=== PATIENT | male | born 1960 | race Caucasian/White ===

== ENCOUNTER 2017-05-09 13:21 | Inpatient (IN) | payer OTHER ==
[~2017-05-09] VITALS: Ht 182.9 cm; Wt 114.1 kg
[2017-05-09] MEDS ORDERED: IPRATROPIUM BROMIDE 0.02% 2.5 ML NEB NEB STA (13:23)
[2017-05-09] MEDS ORDERED: ALBUTEROL SULF 0.083% NEB SOLN 3 ML NEB NEB STA (13:23)
[2017-05-09 14:19] LABS: BASOPHILS # (AUTO) 0.1 (0.0-0.1); BASOPHILS % 0.7 % (0.0-1.0); EOSINOPHILS # (AUTO) 0.3 (0.0-0.4); EOSINOPHILS % 4.6 % (0.0-6.0); HEMATOCRIT 35.3 % (38.2-49.6); HEMOGLOBIN 11.3 g/dL (14.0-18.0); LYMPHOCYTES # (AUTO) 1.1 (1.0-3.2); LYMPHOCYTES % 15.2 % (18.0-39.1); MEAN CORPUSCULAR HEMOGLOBIN 28.5 pg (28-32); MEAN CORPUSCULAR VOLUME 88.9 fL (81-99); MONOCYTES # (AUTO) 0.6 (0.2-0.8); MONOCYTES % 8.5 % (4.4-11.3); NEUTROPHILS # (AUTO) 4.9 (2.1-6.9); NEUTROPHILS % 70.6 % (38.7-80.0); PLATELET COUNT 354 x10e3/uL (140-360); RED BLOOD COUNT 3.97 x10e6/uL (4.3-5.7); RED CELL DISTRIBUTION WIDTH 13.2 % (11.7-14.4)
[2017-05-09] MEDS ORDERED: PHENYLEPHRINE HCL 1% 10 MG/ML VIAL ONE (14:24)
[2017-05-09 14:34] LABS: INR 1.01; PROTHROMBIN TIME 13.8 seconds (11.9-14.5)
[2017-05-09 14:35] LABS: PARTIAL THROMBOPLASTIN TIME 32.4 seconds (23.8-35.5)
[2017-05-09 14:44] LABS: ALANINE AMINOTRANSFERASE 16 IU/L (0-55); ALBUMIN 3.4 g/dL (3.5-5.0); ALBUMIN/GLOBULIN RATIO 0.9 (0.8-2.0); ALKALINE PHOSPHATASE 159 IU/L (40-150); BLOOD UREA NITROGEN 11 mg/dL (7-26); BUN/CREATININE RATIO 12 (6-25); CALCIUM 9.1 mg/dL (8.4-10.2); CARBON DIOXIDE 23 mmol/L (22-29); CHLORIDE 107 mmol/L (98-107); CREATINE KINASE 32 IU/L (30-200); CREATININE, SERUM 0.92 mg/dL (0.72-1.25); EST GLOMERULAR FILTRATION RATE > 60 ML/MIN (60-); GLUCOSE 109 mg/dL (74-118); LIPASE 27 U/L (8-78); SODIUM 140 mmol/L (136-145)
[2017-05-09 14:51] LABS: TROPONIN I 0.007 ng/mL (0-0.300)
[2017-05-09] MEDS ORDERED: ALLOPURINOL100 MG PO (14:56)
[2017-05-09] MEDS ORDERED: IOPAMIDOL 370 MG/ML 200 ML INFUS..BTL INJ ONE (15:04)
[2017-05-09] MEDS ORDERED: SODIUM CHLORIDE 0.9% 50ML 50 ML ONE (15:04)
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
[2017-05-09 16:07] LABS: CLARITY,URINE CLEAR (CLEAR); COLOR,URINE YELLOW (YELLOW); KETONES,URINE NEGATIVE (NEGATIVE); LEUKOCYTE ESTERASE ,URINE NEGATIVE (NEGATIVE); NITRITE,URINE NEGATIVE (NEGATIVE); URINE UROBILINOGEN 0.2 mg/dL (0.2 - 1)
[2017-05-09 16:11] LABS: BILIRUBIN,URINE 1+ (NEGATIVE); PROTEIN,URINE DIPSTICK 1+ (NEGATIVE)
[2017-05-09] MEDS ORDERED: MORPHINE SULFATE 2 MG/ML SYR IV PRN (16:15)
[2017-05-09 16:54] LABS: BACTERIA,URINE FEW /HPF; RBC,URINE 0-5 /HPF (0-5)
[2017-05-09 16:55] LABS: EPITHELIAL CELLS,URINE FEW /LPF; MUCUS,URINE MANY (RARE)
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
[2017-05-09] MEDS: CEFTRIAXONE SOD 1 GM VIAL IV SCH (18:24)
[2017-05-09] MEDS: ALBUTEROL/IPRATROPIUM 3 ML NEB NEB SCH (19:00)
[2017-05-09 21:45] VITALS: BP 132/77
[2017-05-09] MEDS ORDERED: DEXTROSE 5%/LACTATED RINGERS 1,000 ML IV ONE (21:45)
[2017-05-09 22:00] VITALS: BP 132/77
[2017-05-10] MEDS: ALBUTEROL/IPRATROPIUM 3 ML NEB NEB SCH ×6 (00:40→20:40)
[2017-05-10 02:15] VITALS: BP 130/75
[2017-05-10] MEDS: CEFTRIAXONE SOD 1 GM VIAL IV SCH (05:28)
[2017-05-10 05:55] VITALS: BP 129/78
[2017-05-10 08:07] VITALS: BP 139/77
--- NOTE | 2017-05-10 08:07 | Progress Note ---
DATE: May 10, 2017 TIME: 7:21 a.m. OVERNIGHT: No events. Patient is comfortable. REVIEW OF SYSTEMS: Denies any dizziness or chest pain. PHYSICAL EXAMINATION VITAL SIGNS: Reviewed. GENERAL: A tired-appearing man resting in bed. HEENT: Anicteric. CARDIOVASCULAR: Normal S1 and S2. LUNGS: He has moderate breath sounds on the right with markedly reduced breath sounds in the left lung palacio. ABDOMEN: Soft, nontender and nondistended. EXTREMITIES: No edema. SKIN: Dry. PSYCHIATRIC: Normal affect. NEUROLOGICAL: Alert and oriented. LABS: Reviewed. MEDICATIONS: Reviewed. ASSESSMENT: A 56-year-old man with: 1. Left hemothorax. 2. Left hip fracture. 3. Normocytic anemia. 4. Obesity. 5. Dyspnea on exertion. PLAN 1. Surgical management of hemothorax planned for today. 2. Continue pain control and oxygen support. 3. Continue SCD. Job#: [id number] DIVYA
[2017-05-10] MEDS ORDERED: BUPIVACAINE 0.25%/EPI 30ML SDV INJ ONE (11:32)
[2017-05-10 11:59] VITALS: BP 150/85
[2017-05-10] MEDS ORDERED: KETOROLAC TROMETHAMINE 30 MG/ML VIAL IV PRN (13:45)
[2017-05-10] MEDS ORDERED: FENTANYL CITRATE/PF 100MCG/2 ML INJ ONE (14:01)
[2017-05-10] MEDS ORDERED: MIDAZOLAM HCL 2 MG/2 ML VIAL ONE (14:01)
--- NOTE | 2017-05-10 14:10 | Diagnostic Imaging Report ---
PROCEDURE: CHEST SINGLE (PORTABLE) 1339 hrs. COMPARISON: CT chest 05/09/17 INDICATIONS: CHEST TUBE PLACEMENT FINDINGS: The patient is mildly rotated. LUNGS/PLEURA: A tube has been placed into the base of the left hemithorax. Circumferential left pneumothorax measures approximately 2.0 cm. The large left pleural effusion identified on CT is no longer visualized. There is thickening of the visceral pleura of the left lung suggestive of chronicity. The right lung demonstrates no evidence of mass, infiltrate, pleural effusion, or pneumothorax. HEART \T\ MEDIASTINUM: The left heart border is partially obscured. The mediastinum is somewhat shifted to the left. This could be due to patient's positioning. BONES \T\ SOFT TISSUES: There is a small amount of subcutaneous emphysema in the anterior left chest wall the chest tube insertion site. The rib fractures identified on CT are not visualized on this exam.. CONCLUSION: Large left pneumothorax with tube in the base of the left chest. Left pleural effusion has been drained. Dictated by: Omkar Qiu M.D. on 05/10/2017 at 14:18 Electronically approved by: Omkar Qiu M.D. on 05/10/2017 at 14:18
[2017-05-10] MEDS ORDERED: LIDOCAINE HCL 2% LOCAL INJ 5 ML SDV VIAL INJ ONE (14:34)
[2017-05-10] MEDS ORDERED: ONDANSETRON HCL INJ 2 MG/ML VIAL IV ONE (14:34)
[2017-05-10] MEDS ORDERED: PROPOFOL IV EMULSION 10 MG/ML 20 ML VIAL IV ONE (14:34)
[2017-05-10] MEDS ORDERED: EPHEDRINE SULFATE INJ 50 MG/10 ML SYR IV ONE (14:34)
[2017-05-10] MEDS ORDERED: DEXAMETHASONE SOD PHOS INJ 4 MG/ML VIAL IV ONE (14:34)
[2017-05-10] MEDS ORDERED: SUCCINYLCHOLINE 200 MG/10 ML SYR IV ONE (14:34)
[2017-05-10] MEDS ORDERED: ROCURONIUM BROMIDE 10 MG/ML 5ML VIAL IV ONE (14:34)
[2017-05-10] MEDS: DEXTROSE 5%/LACTATED RINGERS 1,000 ML IV SCH ×2 (14:35→23:34)
[2017-05-10 15:46] VITALS: BP 139/80
[2017-05-10] MEDS: ONDANSETRON HCL INJ 2 MG/ML VIAL IV PRN (17:17)
[2017-05-10] MEDS: HYDROMORPHONE 1MG/1ML INJ IV PRN ×2 (17:17→21:42)
--- NOTE | 2017-05-10 19:30 | Operative Report ---
DATE OF PROCEDURE: May 10, 2017 PREOPERATIVE DIAGNOSIS: Left traumatic hemothorax. POSTOPERATIVE DIAGNOSIS: Left traumatic hemothorax. OPERATION PERFORMED: Placement of a size 36-Vietnamese left thoracostomy tube. ANESTHESIA: General. COMPLICATIONS: None. DESCRIPTION OF PROCEDURE: With the patient lying in bed in the supine position under good general endotracheal anesthesia, the left chest was prepped with Betadine solution and draped in the usual manner. The area overlying the 6th interspace was then infiltrated with 1/4 percent Marcaine solution and incision was made and carried down through the subcutaneous tissue and then using blunt dissection with Kaci clamp the left chest was entered and immediately a large amount of fluid was encountered. The finger was then introduced into the chest cavity. The lung was not stuck to the chest wall. We went ahead and proceeded to aspirate 4000 mL of bloody fluid out of the chest. This was done in stages. The patient's blood pressure and vital signs remained stable during the procedure. A #36 chest tube was then placed through the same incision and sutured to the skin with number 1 Mersilene. A dressing was applied. The sponge, lap and needle count was correct. Patient tolerated the procedure well and returned to the recovery room in stable condition. Job#: [id number]
[2017-05-10 20:00] VITALS: BP 121/62
[2017-05-10] MEDS: SODIUM CHLORIDE FLUSH 10 ML SYR INJ PRN (21:42)
[2017-05-11] VITALS: BP 117/62
[2017-05-11] MEDS: ALBUTEROL/IPRATROPIUM 3 ML NEB NEB SCH ×6 (00:40→20:00)
[2017-05-11 04:00] VITALS: BP 110/57
[2017-05-11] MEDS: HYDROMORPHONE 1MG/1ML INJ IV PRN ×4 (04:30→22:20)
[2017-05-11] MEDS: SODIUM CHLORIDE FLUSH 10 ML SYR INJ PRN (04:30)
[2017-05-11 06:52] LABS: BASOPHILS % 0.3 % (0.0-1.0); EOSINOPHILS % 0.1 % (0.0-6.0); HEMOGLOBIN 10.1 g/dL (14.0-18.0); LYMPHOCYTES # (AUTO) 0.8 (1.0-3.2); LYMPHOCYTES % 10.5 % (18.0-39.1); MEAN CORPUSCULAR HEMOGLOBIN 28.7 pg (28-32); MEAN CORPUSCULAR HGB CONC 32.6 g/dL (31-35); MEAN CORPUSCULAR VOLUME 88.1 fL (81-99); MONOCYTES # (AUTO) 0.7 (0.2-0.8); MONOCYTES % 8.3 % (4.4-11.3); NEUTROPHILS # (AUTO) 6.4 (2.1-6.9); NEUTROPHILS % 80.3 % (38.7-80.0); PLATELET COUNT 307 x10e3/uL (140-360); RED BLOOD COUNT 3.52 x10e6/uL (4.3-5.7); RED CELL DISTRIBUTION WIDTH 13.2 % (11.7-14.4)
--- NOTE | 2017-05-11 07:11 | Progress Note ---
DATE: May 11, 2017 TIME: 6:40 a.m. OVERNIGHT: Status post left-sided chest tube. REVIEW OF SYSTEMS: Denies any dizziness, chest pain. PHYSICAL EXAMINATION VITAL SIGNS: Reviewed. GENERAL: A tired-appearing man, resting in bed. HEENT: Anicteric. Pupils respond to light. No oral lesions. CARDIOVASCULAR: Normal S1, S2. LUNGS: Moderate breath sounds. He has fine crackles on the left lung palacio. He has a left-sided chest tube. ABDOMEN: Soft. EXTREMITIES: No edema. SKIN: Dry. PSYCHIATRIC: Normal affect. NEUROLOGICAL: Alert and oriented times 3. LABS: Reviewed. MEDICATIONS: Reviewed. ASSESSMENT: A 56-year-old man 1. Left hemothorax. 2. Left hip fracture. 3. Normocytic anemia. 4. Obesity. 5. Dyspnea on exertion. 6. Urinary tract infection. PLAN 1. Status post chest tube placement to the left. 2. Continue pain control. 3. Obtain labs this morning. 4. Will get pulmonary services on board to assist in management. 5. Empirically use Levaquin for possible urinary tract infection and empirically for the lung disease. Job#: [id number]
[2017-05-11 07:30] LABS: ANION GAP 10.3 mmol/L (8-16); BLOOD UREA NITROGEN 12 mg/dL (7-26); BUN/CREATININE RATIO 12 (6-25); CALCIUM 8.4 mg/dL (8.4-10.2); CARBON DIOXIDE 26 mmol/L (22-29); CHLORIDE 108 mmol/L (98-107); CREATININE, SERUM 0.97 mg/dL (0.72-1.25); EST GLOMERULAR FILTRATION RATE > 60 ML/MIN (60-); GLUCOSE 148 mg/dL (74-118); POTASSIUM 4.3 mmol/L (3.5-5.1); SODIUM 140 mmol/L (136-145)
[2017-05-11 08:07] VITALS: BP 119/63
[2017-05-11] MEDS: DEXTROSE 5%/LACTATED RINGERS 1,000 ML IV SCH ×2 (08:23→19:32)
[2017-05-11 10:00] LABS: % IRON SATURATION 13 % (15-50); IRON 28 ug/dL (65-175); TOTAL IRON BINDING CAPACITY 224 ug/dL (261-478); TRANSFERRIN 160 mg/dL (174-364)
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
--- NOTE | 2017-05-11 10:37 | Diagnostic Imaging Report ---
PROCEDURE:CHEST SINGLE (PORTABLE) TECHNIQUE:Portable AP chest INDICATION:Left-sided pneumothorax COMPARISON:Patients [facility], DX, CHEST SINGLE (PORTABLE), 05/10/2017, 13:39. FINDINGS: See conclusion. CONCLUSION: 1. Smaller left pneumothorax relative May 10, with a fair gap of about 1 cm compared to 2 cm. 2. Stable left basilar chest tube. 3. Decreased left lung airspace opacity consistent with improved atelectasis. Underlying reexpansion pulmonary edema and/or infection remain within the differential. Stable clear right lung. 4. Stable cardiomediastinal silhouette, with normal heart size. 5. Grossly intact skeleton. Small volume left chest wall subcutaneous emphysema. Dictated by: Jeremi Trujillo M.D. on 05/11/2017 at 10:45 Electronically approved by: Jeremi Trujillo M.D. on 05/11/2017 at 10:45
[2017-05-11 12:05] VITALS: BP 120/64
[2017-05-11 16:18] VITALS: BP 129/76
[2017-05-11 20:00] VITALS: BP 134/72
[2017-05-11] MEDS: ATORVASTATIN 10 MG TAB PO SCH (20:44)
[2017-05-12] VITALS: BP 128/73
[2017-05-12] MEDS: ALBUTEROL/IPRATROPIUM 3 ML NEB NEB SCH ×7 (00:30→23:42)
[2017-05-12 04:00] VITALS: BP 125/75
[2017-05-12] MEDS: DEXTROSE 5%/LACTATED RINGERS 1,000 ML IV SCH (05:32)
[2017-05-12] MEDS: HYDROMORPHONE 1MG/1ML INJ IV PRN ×3 (05:38→19:15)
--- NOTE | 2017-05-12 06:22 | Diagnostic Imaging Report ---
EXAM: CHEST SINGLE (PORTABLE), AP 1 view DATE: 05/12/2017 5:00 AM Time stamp on exam: 0529 hours INDICATION: Postop, left pneumothorax COMPARISON: AP view of the chest May 11, 2017 FINDINGS: LINES/TUBES: Left chest tube stable position LUNGS: Left lower lobe atelectasis PLEURA: Trace residual hydropneumothorax. HEART AND MEDIASTINUM: Stable appearance. BONES AND SOFT TISSUES: No acute findings. IMPRESSION: No interval change. Signed by: Dr. Maria Teresa Bar M.D. on 05/12/2017 6:19 AM
--- NOTE | 2017-05-12 07:21 | Progress Note ---
DATE: May 12, 2017 TIME: 7 a.m. OVERNIGHT: No events. REVIEW OF SYSTEMS: Denies any dizziness or chest pain. PHYSICAL EXAMINATION VITAL SIGNS: Reviewed. GENERAL: A tired-appearing man resting in bed. HEENT: Anicteric. CARDIOVASCULAR: Normal S1 and S2. LUNGS: Moderate breath sounds. Fine crackles in the left lung field. He has a left-sided chest tube in place. ABDOMEN: Soft, nontender and nondistended. EXTREMITIES: No edema. SKIN: Dry. PSYCHIATRIC: Flat affect. LABS: Reviewed. MEDICATIONS: Reviewed. ASSESSMENT: A 56-year-old man with: 1. Left hemothorax: Status post chest tube. 2. Left rib fracture. 3. Normocytic anemia, mild. 4. Obesity: Body mass index 34.6. 5. Dyspnea on exertion secondary to hemothorax. 6. Iron deficiency anemia. PLAN 1. Continue chest tube. Defer to surgical team. 2. Start ferrous sulfate. 3. Pain control. 4. Continue statin. 5. Chest x-ray shows trace residual hydrothorax. Job#: [id number] [place]
[2017-05-12 07:25] LABS: BASOPHILS % 0.6 % (0.0-1.0); EOSINOPHILS # (AUTO) 0.2 (0.0-0.4); EOSINOPHILS % 2.9 % (0.0-6.0); HEMATOCRIT 34.3 % (38.2-49.6); HEMOGLOBIN 10.8 g/dL (14.0-18.0); LYMPHOCYTES # (AUTO) 1.5 (1.0-3.2); LYMPHOCYTES % 24.2 % (18.0-39.1); MEAN CORPUSCULAR HEMOGLOBIN 28.1 pg (28-32); MEAN CORPUSCULAR HGB CONC 31.5 g/dL (31-35); MEAN CORPUSCULAR VOLUME 89.1 fL (81-99); MONOCYTES # (AUTO) 0.6 (0.2-0.8); MONOCYTES % 9.8 % (4.4-11.3); NEUTROPHILS # (AUTO) 3.9 (2.1-6.9); NEUTROPHILS % 62.2 % (38.7-80.0); PLATELET COUNT 341 x10e3/uL (140-360); RED BLOOD COUNT 3.85 x10e6/uL (4.3-5.7); RED CELL DISTRIBUTION WIDTH 13.7 % (11.7-14.4)
[2017-05-12 07:45] LABS: ANION GAP 10.5 mmol/L (8-16); BLOOD UREA NITROGEN 9 mg/dL (7-26); BUN/CREATININE RATIO 10 (6-25); CALCIUM 8.6 mg/dL (8.4-10.2); CARBON DIOXIDE 28 mmol/L (22-29); CHLORIDE 105 mmol/L (98-107); CREATININE, SERUM 0.94 mg/dL (0.72-1.25); EST GLOMERULAR FILTRATION RATE > 60 ML/MIN (60-); GLUCOSE 97 mg/dL (74-118); POTASSIUM 4.5 mmol/L (3.5-5.1); SODIUM 139 mmol/L (136-145)
[2017-05-12] MEDS: ALLOPURINOL 100 MG TAB PO SCH (09:00)
[2017-05-12] MEDS: FERROUS SULFATE 325 MG TAB PO SCH ×2 (10:20→17:56)
[2017-05-12 10:31] VITALS: BP 120/90
[2017-05-12 12:00] VITALS: BP 135/64
[2017-05-12] MEDS ORDERED: SODIUM CHLORIDE FLUSH 10 ML SYR INJ PRN (16:45)
[2017-05-12] MEDS ORDERED: MORPHINE SULFATE 5 MG/ML VIAL IV PRN (16:45)
[2017-05-12 16:58] VITALS: BP 139/75
[2017-05-12 20:00] VITALS: BP 141/78
[2017-05-12] MEDS: ATORVASTATIN 10 MG TAB PO SCH (20:57)
[2017-05-13] VITALS: BP 134/76
[2017-05-13] MEDS: ALBUTEROL/IPRATROPIUM 3 ML NEB NEB SCH ×6 (03:32→23:40)
[2017-05-13 04:00] VITALS: BP 132/79
[2017-05-13] MEDS: HYDROMORPHONE 1MG/1ML INJ IV PRN ×3 (06:35→19:57)
--- NOTE | 2017-05-13 06:47 | Diagnostic Imaging Report ---
EXAM: CHEST SINGLE (PORTABLE), AP 1 view DATE: 05/13/2017 5:00 AM Time stamp on exam: 0301 hours INDICATION: Postop, hemothorax on left COMPARISON: AP view of the chest May 12, 2017 FINDINGS: LINES/TUBES: Left chest tube, stable position LUNGS: Left lower lobe atelectasis PLEURA: Small residual left hemopneumothorax. HEART AND MEDIASTINUM: Stable BONES AND SOFT TISSUES: No interval change IMPRESSION: No interval change Signed by: Dr. Maria Teresa Bar M.D. on 05/13/2017 6:44 AM
[2017-05-13 08:17] LABS: BASOPHILS % 0.7 % (0.0-1.0); EOSINOPHILS # (AUTO) 0.2 (0.0-0.4); EOSINOPHILS % 3.3 % (0.0-6.0); HEMATOCRIT 36.6 % (38.2-49.6); HEMOGLOBIN 11.6 g/dL (14.0-18.0); LYMPHOCYTES # (AUTO) 1.4 (1.0-3.2); LYMPHOCYTES % 24.5 % (18.0-39.1); MEAN CORPUSCULAR HEMOGLOBIN 27.9 pg (28-32); MEAN CORPUSCULAR HGB CONC 31.7 g/dL (31-35); MONOCYTES # (AUTO) 0.5 (0.2-0.8); MONOCYTES % 8.9 % (4.4-11.3); NEUTROPHILS # (AUTO) 3.6 (2.1-6.9); NEUTROPHILS % 61.9 % (38.7-80.0); PLATELET COUNT 393 x10e3/uL (140-360); RED BLOOD COUNT 4.16 x10e6/uL (4.3-5.7); RED CELL DISTRIBUTION WIDTH 13.5 % (11.7-14.4)
[2017-05-13 08:31] VITALS: BP 111/66
[2017-05-13 08:45] LABS: ANION GAP 12.8 mmol/L (8-16); BLOOD UREA NITROGEN 11 mg/dL (7-26); BUN/CREATININE RATIO 11 (6-25); CALCIUM 9.1 mg/dL (8.4-10.2); CARBON DIOXIDE 26 mmol/L (22-29); CHLORIDE 103 mmol/L (98-107); CREATININE, SERUM 1.02 mg/dL (0.72-1.25); EST GLOMERULAR FILTRATION RATE > 60 ML/MIN (60-); GLUCOSE 128 mg/dL (74-118); POTASSIUM 3.8 mmol/L (3.5-5.1); SODIUM 138 mmol/L (136-145)
[2017-05-13] MEDS: ALLOPURINOL 100 MG TAB PO SCH (09:00)
[2017-05-13] MEDS: FERROUS SULFATE 325 MG TAB PO SCH ×2 (09:51→17:30)
[2017-05-13] MEDS: IRON SUCROSE 100 MG in SODIUM CHLORIDE 0.9% 100 ML 100 ML IV SCH (14:12)
[2017-05-13 14:17] VITALS: BP 130/79
[2017-05-13 17:48] VITALS: BP 148/77
[2017-05-13 20:00] VITALS: BP 119/69
[2017-05-13] MEDS: ATORVASTATIN 10 MG TAB PO SCH (21:00)
[2017-05-14] VITALS: BP 116/67
[2017-05-14] MEDS: ALBUTEROL/IPRATROPIUM 3 ML NEB NEB SCH ×7 (03:00→23:25)
[2017-05-14 04:00] VITALS: BP 125/72
[2017-05-14] MEDS: HYDROMORPHONE 1MG/1ML INJ IV PRN (05:45)
--- NOTE | 2017-05-14 06:30 | Diagnostic Imaging Report ---
EXAM: CHEST SINGLE (PORTABLE), AP 1 view DATE: 05/14/2017 5:00 AM Time stamp on exam: 0558 hours INDICATION: Postop, left hemothorax COMPARISON: AP view of the chest May 13, 2017 FINDINGS: LINES/TUBES: Left chest tube, stable position LUNGS: Left lower lobe atelectasis PLEURA: Small residual left hemopneumothorax. HEART AND MEDIASTINUM: Stable appearance BONES AND SOFT TISSUES: No acute findings. IMPRESSION: No interval change Signed by: Dr. Maria Teresa Bar M.D. on 05/14/2017 6:26 AM
[2017-05-14 08:18] VITALS: BP 135/77
[2017-05-14] MEDS: ALLOPURINOL 100 MG TAB PO SCH (09:00)
[2017-05-14] MEDS: FERROUS SULFATE 325 MG TAB PO SCH ×2 (09:10→18:20)
--- NOTE | 2017-05-14 12:47 | Progress Note ---
DATE: May 13, 2017 MEDICINE PROGRESS NOTE TIME OF SERVICE: 7 a.m. SUBJECTIVE: Overnight no events. REVIEW OF SYSTEMS: Denies any dizziness. VITAL SIGNS: Reviewed. PHYSICAL EXAMINATION GENERAL APPEARANCE: A tired-appearing man resting in bed. HEENT: Anicteric. CARDIOVASCULAR: Normal S1/S2. LUNGS: He has good breath sounds. Mild crackles in the left lung field. Chest tube in place on the left. ABDOMEN: Soft, nontender, nondistended. EXTREMITIES: No edema. SKIN: Dry. PSYCHIATRIC: Normal affect. LABS: Reviewed. MEDICATIONS: Reviewed. ASSESSMENT: A 56-year-old man. 1. Left hemothorax, status post chest tube. 2. Left rib fracture. 3. Normocytic anemia, mild. 4. Obesity with body mass index 34.6. 5. Dyspnea on exertion secondary to hemothorax. 6. Iron deficiency anemia. PLAN 1. Chest tube per surgical team. 1. Ferrous sulfate. 2. Pain control. 3. Ambulate. 4. Follow up labs. Job#: [id number] EV
--- NOTE | 2017-05-14 12:49 | Progress Note ---
DATE: May 14, 2017 MEDICINE PROGRESS NOTE TIME OF SERVICE: 6:17 a.m. SUBJECTIVE: Overnight no pain. REVIEW OF SYSTEMS: Denies any dizziness or shortness of breath. VITAL SIGNS: Reviewed. PHYSICAL EXAMINATION GENERAL APPEARANCE: A tired-appearing man resting in bed. HEENT: Anicteric. CARDIOVASCULAR: Normal S1/S2. LUNGS: Moderate breath sounds. He has left-sided chest tube in place. ABDOMEN: Soft, nontender. EXTREMITIES: No edema. SKIN: Dry. PSYCHIATRIC: Normal affect. LABS: Reviewed. MEDICATIONS: Reviewed. ASSESSMENT: A 56-year-old man. 1. Left hemothorax, status post chest tube. 2. Left rib fracture. 3. Normocytic anemia, mild. 4. Obesity with body mass index 34.6. 5. Dyspnea on exertion secondary to hemothorax. 6. Iron deficiency anemia. PLAN 1. Chest tube per surgical team. 2. He has p.r.n. pain medication. 3. O2 sats are okay. 4. All cultures remain negative. 5. Chest x-ray today is pending. Job#: [id number] EV
[2017-05-14 13:13] VITALS: BP 127/77
[2017-05-14] MEDS: IRON SUCROSE 100 MG in SODIUM CHLORIDE 0.9% 100 ML 100 ML IV SCH (14:00)
[2017-05-14] MEDS: HYDROMORPHONE 2MG/ML INJ IV PRN ×2 (14:00→20:39)
[2017-05-14 16:36] VITALS: BP 140/73
[2017-05-14 20:00] VITALS: BP 135/77
[2017-05-14] MEDS: ATORVASTATIN 10 MG TAB PO SCH (20:31)
[2017-05-15] VITALS: BP 127/70
[2017-05-15] MEDS: ALBUTEROL/IPRATROPIUM 3 ML NEB NEB SCH ×5 (03:40→23:05)
[2017-05-15 04:00] VITALS: BP 130/83
[2017-05-15] MEDS: HYDROMORPHONE 2MG/ML INJ IV PRN ×5 (05:20→22:10)
[2017-05-15 08:11] VITALS: BP 140/81
[2017-05-15] MEDS: FERROUS SULFATE 325 MG TAB PO SCH (08:32)
[2017-05-15] MEDS: ALLOPURINOL 100 MG TAB PO SCH (08:32)
[2017-05-15] MEDS: HYDROCODONE/APAP 7.5MG-325MG 1 EA TAB PO PRN ×2 (10:46→18:43)
[2017-05-15 12:09] VITALS: BP 135/74
[2017-05-15] MEDS: IRON SUCROSE 100 MG in SODIUM CHLORIDE 0.9% 100 ML 100 ML IV SCH (12:12)
[2017-05-15] MEDS: CLINDAMYCIN 300MG 50 ML IV SCH ×2 (13:17→21:35)
[2017-05-15 16:19] VITALS: BP 131/67
[2017-05-15 20:00] VITALS: BP 122/65
[2017-05-15] MEDS: ATORVASTATIN 10 MG TAB PO SCH (21:11)
[2017-05-16] VITALS: BP 127/66
[2017-05-16] MEDS: HYDROMORPHONE 2MG/ML INJ IV PRN ×6 (01:10→23:46)
[2017-05-16] MEDS: HYDROCODONE/APAP 7.5MG-325MG 1 EA TAB PO PRN ×3 (02:09→17:09)
[2017-05-16] MEDS: ALBUTEROL/IPRATROPIUM 3 ML NEB NEB SCH ×6 (03:12→23:36)
[2017-05-16 03:52] VITALS: BP 116/63
[2017-05-16] MEDS: CLINDAMYCIN 300MG 50 ML IV SCH (05:09)
--- NOTE | 2017-05-16 06:35 | Diagnostic Imaging Report ---
EXAM: CHEST 2 VIEWS, AP 1 view DATE: 05/16/2017 8:00 AM INDICATION: Pneumothorax COMPARISON: May 14, 2017 FINDINGS: LINES/TUBES: Left chest tube, stable position LUNGS: Left lower lobe atelectasis PLEURA: Stable small left hydro/hemopneumothorax. HEART AND MEDIASTINUM: Stable appearance BONES AND SOFT TISSUES: No acute findings. IMPRESSION: No interval change Signed by: Dr Joanie Castillo MD on 05/16/2017 6:31 AM
[2017-05-16 07:06] LABS: BASOPHILS % 0.3 % (0.0-1.0); EOSINOPHILS % 0.2 % (0.0-6.0); HEMATOCRIT 38.1 % (38.2-49.6); HEMOGLOBIN 12.5 g/dL (14.0-18.0); LYMPHOCYTES # (AUTO) 1.3 (1.0-3.2); LYMPHOCYTES % 9.3 % (18.0-39.1); MEAN CORPUSCULAR HGB CONC 32.8 g/dL (31-35); MEAN CORPUSCULAR VOLUME 85.4 fL (81-99); MONOCYTES # (AUTO) 1.5 (0.2-0.8); MONOCYTES % 10.4 % (4.4-11.3); NEUTROPHILS % 79.2 % (38.7-80.0); PLATELET COUNT 357 x10e3/uL (140-360); RED BLOOD COUNT 4.46 x10e6/uL (4.3-5.7); RED CELL DISTRIBUTION WIDTH 13.7 % (11.7-14.4)
[2017-05-16] MEDS: ALLOPURINOL 100 MG TAB PO SCH (09:03)
[2017-05-16] MEDS ORDERED: IOPAMIDOL 370 MG/ML 200 ML INFUS..BTL INJ ONE (09:20)
[2017-05-16] MEDS ORDERED: SODIUM CHLORIDE 0.9% 50ML 50 ML ONE (09:20)
--- NOTE | 2017-05-16 09:41 | Diagnostic Imaging Report ---
PROCEDURE: CT scan of the chest WITH intravenous contrast, using standard protocol. TECHNIQUE: The chest was scanned utilizing a multidetector helical scanner from the lung apex through the level of the adrenal glands after the IV administration of 100 cc of Isovue 370. Coronal and sagittal multiplanar reformations were obtained. COMPARISON: CT chest 05/09/2017. INDICATIONS: CHEST PAIN, INCREASED FLUID DRAINAGE FINDINGS: Lines/tubes: Left thoracostomy catheter is present with the tip positioned within the left lower pleural space. Lungs and Airways: The right lung is clear. Minimal interval increased aeration of the left upper lobe. Continued atelectasis of the left lower lobe is present. Pleura: Small left pleural effusion, mainly in the left lung base along the left lateral chest wall. Small pneumothorax is present, mainly in the left lung base and the right apex. Heart and mediastinum: The thyroid gland is normal. No significant mediastinal, hilar or axillary lymphadenopathy is seen. The heart and pericardium are within normal limits. Soft tissues: Subcutaneous air is present along the left lateral chest wall. No drainable fluid collection. Abdomen: Limited contrast-enhanced views of the upper abdomen show no abnormality within the visualized liver, spleen, pancreas, or kidneys. The adrenal glands are normal. Bones: Stable multilevel left rib fractures. IMPRESSION: Left thoracostomy catheter in proper position with minimal residual left pneumothorax and left pleural effusion with compression atelectasis of the left lower lobe. Dictated by: Austin Bone M.D. on 05/16/2017 at 9:40 Electronically approved by: Austin Bone M.D. on 05/16/2017 at 9:40
[2017-05-16 12:00] VITALS: BP 125/76
[2017-05-16] MEDS ORDERED: PIPER-TAZ 3.375 GM 50 ML IV SCH (12:00)
[2017-05-16] MEDS: PIPERACILLIN/TAZOBAC 3.375 GM in SODIUM CHLORIDE 0.9% 100 ML 100 ML IV SCH ×2 (13:10→20:18)
[2017-05-16 16:00] VITALS: BP 120/67
[2017-05-16 20:00] VITALS: BP 127/62
[2017-05-16] MEDS: ACETAMINOPHEN 325 MG TAB PO PRN (20:40)
[2017-05-16] MEDS: ATORVASTATIN 10 MG TAB PO SCH (21:38)
[2017-05-17 00:46] VITALS: BP 128/70
[2017-05-17] MEDS: ALBUTEROL/IPRATROPIUM 3 ML NEB NEB SCH ×6 (03:00→22:05)
[2017-05-17 04:00] VITALS: BP 112/64
--- NOTE | 2017-05-17 04:06 | Progress Note ---
DATE: May 15, 2017 TIME: 5:45 a.m. OVERNIGHT: No events. REVIEW OF SYSTEMS: Denies any dizziness. PHYSICAL EXAMINATION VITAL SIGNS: Reviewed. GENERAL: A tired-appearing man resting in bed. HEENT: Anicteric. CARDIOVASCULAR: Normal S1 and S2. LUNGS: He has moderate breath sounds. Fine crackles in the left lung field. He has a left-sided chest tube. ABDOMEN: Soft and nontender. EXTREMITIES: No edema. SKIN: Dry. PSYCHIATRIC: Normal affect. LABS: Reviewed. MEDICATIONS: Reviewed. ASSESSMENT: A 56-year-old man with: 1. Left hemothorax: Status post chest tube. 2. Left rib fracture. 3. Normocytic anemia, mild. 4. Obesity: Body mass index 34.6. 5. Dyspnea on exertion secondary to hemothorax. 6. Iron deficiency anemia. PLAN 1. Chest tube per surgical team. 2. Pain currently controlled. 3. O2 sats are okay. 4. All cultures remain negative. 5. Follow up chest x-ray tomorrow morning. Job#: [id number] [place]
--- NOTE | 2017-05-17 04:10 | Progress Note ---
DATE: May 16, 2017 TIME: 5:45 a.m. OVERNIGHT: Increased output from the chest tube. The patient is febrile. REVIEW OF SYSTEMS: Denies any dizziness. PHYSICAL EXAMINATION VITAL SIGNS: Reviewed. GENERAL: A tired-appearing man resting in bed. HEENT: Anicteric. CARDIOVASCULAR: Normal S1 and S2. LUNGS: Moderate breath sounds. Fine crackles in the left lung field. Left-sided chest tube. ABDOMEN: Soft and nontender. EXTREMITIES: No edema. SKIN: Dry. PSYCHIATRIC: Normal affect. LABS: Reviewed. MEDICATIONS: Reviewed. ASSESSMENT: A 56-year-old man with: 1. Left hemothorax: Status post chest tube. 2. Left rib fracture. 3. Normocytic anemia, mild. 4. Obesity: Body mass index 34.6. 5. Dyspnea on exertion secondary to hemothorax. 6. Iron deficiency anemia. PLAN 1. Increased output from the chest tube. Will obtain re-imaging. 2. P.r.n. pain medications. 3. O2 sats are okay. 4. All cultures remain negative, but the patient is now febrile with increased leukocytosis. Will use IV Zosyn. 5. Chest tube per surgical team. 6. Discussed case with the patient and 2 family members at bedside. Job#: [id number] DIVYA
[2017-05-17] MEDS: PIPERACILLIN/TAZOBAC 3.375 GM in SODIUM CHLORIDE 0.9% 100 ML 100 ML IV SCH ×3 (04:15→22:01)
[2017-05-17] MEDS: HYDROMORPHONE 2MG/ML INJ IV PRN ×4 (04:29→22:01)
[2017-05-17] MEDS: HYDROCODONE/APAP 7.5MG-325MG 1 EA TAB PO PRN ×3 (05:26→23:05)
[2017-05-17 08:00] VITALS: BP 125/67
[2017-05-17] MEDS: ALLOPURINOL 100 MG TAB PO SCH (08:35)
[2017-05-17] MEDS: ONDANSETRON HCL INJ 2 MG/ML VIAL IV PRN ×2 (11:25→15:58)
[2017-05-17] MEDS: VANCOMYCIN 1GM/NS 250 ML 250 ML IV SCH (12:37)
[2017-05-17 14:23] VITALS: BP 118/59
[2017-05-17] MEDS ORDERED: DOCUSATE SODIUM 100 MG CAP PO ONE (17:45)
[2017-05-17] MEDS ORDERED: CITRATE OF MAGNESIA 300ML BOTTLE PO ONE (17:45)
[2017-05-17 18:58] VITALS: BP 133/58
[2017-05-17 20:00] VITALS: BP 115/68
[2017-05-17] MEDS: ATORVASTATIN 10 MG TAB PO SCH (22:01)
[2017-05-18] VITALS: BP 104/58
[2017-05-18] MEDS: VANCOMYCIN 1GM/NS 250 ML 250 ML IV SCH ×2 (00:46→13:30)
[2017-05-18] MEDS: ALBUTEROL/IPRATROPIUM 3 ML NEB NEB SCH ×6 (02:11→23:50)
[2017-05-18] MEDS: HYDROMORPHONE 2MG/ML INJ IV PRN ×4 (02:41→21:39)
[2017-05-18 04:00] VITALS: BP 121/79
[2017-05-18] MEDS: PIPERACILLIN/TAZOBAC 3.375 GM in SODIUM CHLORIDE 0.9% 100 ML 100 ML IV SCH ×3 (05:06→21:26)
[2017-05-18] MEDS: HYDROCODONE/APAP 7.5MG-325MG 1 EA TAB PO PRN ×3 (05:07→19:56)
--- NOTE | 2017-05-18 06:40 | Diagnostic Imaging Report ---
EXAM: CHEST 2 VIEWS, AP 1 view DATE: 05/18/2017 8:00 AM INDICATION: Pneumothorax COMPARISON: May 16, 2017 FINDINGS: LINES/TUBES: Left chest tube, stable position LUNGS: Left lower lobe atelectasis PLEURA: Stable small left hydro/hemopneumothorax. HEART AND MEDIASTINUM: Stable appearance IMPRESSION: No interval change Signed by: Dr Joanie Castillo MD on 05/18/2017 6:36 AM
[2017-05-18 08:13] VITALS: BP 123/65
[2017-05-18] MEDS: ALLOPURINOL 100 MG TAB PO SCH (08:54)
[2017-05-18 12:41] VITALS: BP 121/68
[2017-05-18 17:12] VITALS: BP 127/65
[2017-05-18] MEDS ORDERED: SODIUM CHLORIDE 0.9% 250ML 250 ML ONE (17:12)
[2017-05-18] MEDS: ONDANSETRON HCL INJ 2 MG/ML VIAL IV PRN (17:21)
[2017-05-18 20:00] VITALS: BP 129/68
[2017-05-18] MEDS: ATORVASTATIN 10 MG TAB PO SCH (21:26)
[2017-05-19] VITALS: BP 129/67
[2017-05-19] MEDS: ALBUTEROL/IPRATROPIUM 3 ML NEB NEB SCH ×6 (00:15→19:40)
[2017-05-19] MEDS: HYDROCODONE/APAP 7.5MG-325MG 1 EA TAB PO PRN ×4 (01:27→20:07)
[2017-05-19] MEDS: VANCOMYCIN 1GM/NS 250 ML 250 ML IV SCH ×2 (01:27→13:47)
[2017-05-19 04:00] VITALS: BP_SYST 129; BP_SYST 96; BP_DIAS 51; BP_DIAS 67
[2017-05-19] MEDS: PIPERACILLIN/TAZOBAC 3.375 GM in SODIUM CHLORIDE 0.9% 100 ML 100 ML IV SCH ×3 (05:28→20:51)
[2017-05-19] MEDS: HYDROMORPHONE 2MG/ML INJ IV PRN ×2 (05:40→10:19)
[2017-05-19 06:47] LABS: BASOPHILS % 0.3 % (0.0-1.0); EOSINOPHILS # (AUTO) 0.1 (0.0-0.4); EOSINOPHILS % 2.1 % (0.0-6.0); HEMATOCRIT 28.9 % (38.2-49.6); LYMPHOCYTES # (AUTO) 0.8 (1.0-3.2); LYMPHOCYTES % 12.5 % (18.0-39.1); MEAN CORPUSCULAR HEMOGLOBIN 27.6 pg (28-32); MEAN CORPUSCULAR HGB CONC 31.8 g/dL (31-35); MEAN CORPUSCULAR VOLUME 86.8 fL (81-99); MONOCYTES # (AUTO) 0.8 (0.2-0.8); MONOCYTES % 11.9 % (4.4-11.3); NEUTROPHILS # (AUTO) 4.9 (2.1-6.9); NEUTROPHILS % 72.8 % (38.7-80.0); PLATELET COUNT 334 x10e3/uL (140-360); RED BLOOD COUNT 3.33 x10e6/uL (4.3-5.7); RED CELL DISTRIBUTION WIDTH 13.7 % (11.7-14.4)
[2017-05-19 06:55] LABS: HEMOGLOBIN 9.2 g/dL (14.0-18.0)
[2017-05-19 07:15] LABS: ANION GAP 12.1 mmol/L (8-16); BLOOD UREA NITROGEN 10 mg/dL (7-26); BUN/CREATININE RATIO 10 (6-25); CALCIUM 8.4 mg/dL (8.4-10.2); CARBON DIOXIDE 26 mmol/L (22-29); CHLORIDE 103 mmol/L (98-107); EST GLOMERULAR FILTRATION RATE > 60 ML/MIN (60-); GLUCOSE 105 mg/dL (74-118); POTASSIUM 4.1 mmol/L (3.5-5.1); SODIUM 137 mmol/L (136-145)
[2017-05-19] MEDS: ALLOPURINOL 100 MG TAB PO SCH (08:26)
[2017-05-19 08:51] VITALS: BP 121/61
--- NOTE | 2017-05-19 08:56 | Diagnostic Imaging Report ---
PROCEDURE:CHEST 2 VIEWS TECHNIQUE:PA and lateral chest INDICATION:Pneumothorax; chest tube COMPARISON:Patients [facility], , CHEST 2 VIEWS, 05/16/2017, 5:57. FINDINGS: See conclusion. CONCLUSION: 1. Left basilar surgical chest tube. 2. Stable small left basilar pneumothorax. Small loculated left pleural effusion. 3. Left hemidiaphragm elevation with segmental left lower lobe collapse with or without superimposed pneumonia. Overall appearance is unchanged from May 16. 4. Clear right lung. 5. Stable cardiomediastinal silhouette, with mild leftward mediastinal shift secondary to left lower lobe partial collapse. Dictated by: Jeremi Trujillo M.D. on 05/19/2017 at 9:05 Electronically approved by: Jeremi Trujillo M.D. on 05/19/2017 at 9:05
[2017-05-19] MEDS ORDERED: DOCUSATE SODIUM 100 MG CAP PO PRN (10:15)
[2017-05-19 12:57] VITALS: BP 120/72
[2017-05-19 16:37] VITALS: BP 137/76
[2017-05-19 20:00] VITALS: BP 140/72
[2017-05-19] MEDS: ATORVASTATIN 10 MG TAB PO SCH (21:00)
[2017-05-20] VITALS: BP 129/67
[2017-05-20] MEDS: VANCOMYCIN 1GM/NS 250 ML 250 ML IV SCH ×2 (02:04→14:05)
[2017-05-20] MEDS: ALBUTEROL/IPRATROPIUM 3 ML NEB NEB SCH ×6 (03:00→23:40)
[2017-05-20 04:00] VITALS: BP 123/61
[2017-05-20] MEDS: PIPERACILLIN/TAZOBAC 3.375 GM in SODIUM CHLORIDE 0.9% 100 ML 100 ML IV SCH ×3 (04:08→20:46)
[2017-05-20] MEDS: HYDROCODONE/APAP 7.5MG-325MG 1 EA TAB PO PRN (04:12)
--- NOTE | 2017-05-20 06:22 | Diagnostic Imaging Report ---
EXAM: CHEST 2 VIEWS, AP 1 view DATE: 05/20/2017 6:00 AM INDICATION: \S\F/U REMOVAL OF CHEST TUBE AND PNEUMONIA COMPARISON: 05/19/2017 FINDINGS: LINES/TUBES: Removal of left chest tube with soft tissue gas along the tract. LUNGS: Left lower lobe atelectasis or consolidation, stable. PLEURA: Stable small left loculated hydro/hemopneumothorax. HEART AND MEDIASTINUM: Stable appearance IMPRESSION: Removal of left chest tube. Otherwise stable. Signed by: Dr Joanie Castillo MD on 05/20/2017 6:18 AM
[2017-05-20 08:22] VITALS: BP 126/58
[2017-05-20] MEDS: ALLOPURINOL 100 MG TAB PO SCH (08:46)
[2017-05-20 11:50] VITALS: BP 133/75
[2017-05-20] MEDS: ACETAMINOPHEN 325 MG TAB PO PRN ×2 (13:21→23:33)
[2017-05-20 14:31] LABS: HIV 1&2 AB SCREEN NON-REACTIVE (NONREACTIVE)
[2017-05-20 16:38] VITALS: BP 126/71
[2017-05-20 20:34] VITALS: BP 134/67
[2017-05-20] MEDS: ATORVASTATIN 10 MG TAB PO SCH (20:47)
[2017-05-21] VITALS: BP 122/61
[2017-05-21] MEDS: ALBUTEROL/IPRATROPIUM 3 ML NEB NEB SCH ×6 (03:00→23:05)
[2017-05-21 04:00] VITALS: BP 136/72
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
[2017-05-21] MEDS ORDERED: DIATRIZOATE MEGL/DIATRIZOA SOD 30 ML BTL PO ONE (06:19)
[2017-05-21] MEDS: ALLOPURINOL 100 MG TAB PO SCH (08:10)
[2017-05-21 08:22] VITALS: BP 128/71
[2017-05-21 08:23] LABS: BASOPHILS % 0.3 % (0.0-1.0); EOSINOPHILS # (AUTO) 0.1 (0.0-0.4); EOSINOPHILS % 0.6 % (0.0-6.0); HEMATOCRIT 28.6 % (38.2-49.6); HEMOGLOBIN 9.2 g/dL (14.0-18.0); LYMPHOCYTES # (AUTO) 0.8 (1.0-3.2); LYMPHOCYTES % 9.6 % (18.0-39.1); MEAN CORPUSCULAR HEMOGLOBIN 27.8 pg (28-32); MEAN CORPUSCULAR HGB CONC 32.2 g/dL (31-35); MEAN CORPUSCULAR VOLUME 86.4 fL (81-99); MONOCYTES # (AUTO) 0.8 (0.2-0.8); MONOCYTES % 8.8 % (4.4-11.3); NEUTROPHILS % 79.8 % (38.7-80.0); PLATELET COUNT 397 x10e3/uL (140-360); RED BLOOD COUNT 3.31 x10e6/uL (4.3-5.7); RED CELL DISTRIBUTION WIDTH 14.1 % (11.7-14.4)
--- NOTE | 2017-05-21 08:28 | Diagnostic Imaging Report ---
CT Abdomen And Pelvis with Intravenous Contrast INDICATION: Abscess TECHNIQUE: Thin collimation axial images obtained from the diaphragm to the level of the pubic symphysis following the uneventful administration of 100 cc of low osmolar, nonionic intravenous contrast. RADIATION DOSE: Total DLP: 844 mGy*cm Estimated effective dose: (DLP x 0.015 x size factor) mSv CTDIvol has been reviewed. It is below the limits set by the Radiation Protocol Committee (RPC). COMPARISON: CT chest 05/09/2017. ABDOMEN FINDINGS: Lung Bases: Loculated fluid collection containing multiple components of dependent and nondependent air in the inferior left hemithorax measures 12 x 6 cm in the axial plane. This collection is incompletely imaged. There is marked enhancement of the visceral and parietal pleura. Subpulmonic fluid collection measures 13 mm in thickness and tracks along the diaphragm. The visualized left lower lobe is collapsed with a few areas of aeration. There is a skin tract that extends from the inferior and lateral left chest wall towards the pleural space. There is subcutaneous emphysema extending from this pleural tract into the left hemiabdomen. The right lung bases clear. There is a small pericardial effusion. Prominent left cardiophrenic lymph nodes measure up to 2 cm. Lymph nodes adjacent to the distal esophagus are prominent measuring up to 12 mm. Liver: Normal attenuation. No evidence for mass. Gallbladder: Present and appears normal. No biliary ductal dilatation. Pancreas: Normal attenuation without mass or ductal dilatation. Spleen: Normal in size. No evidence of mass.. Adrenal Glands: No evidence for mass. Kidneys: Right: Normal enhancement. No cortical mass. No hydronephrosis. Left: Normal enhancement. No cortical mass. No hydronephrosis. There is a retroaortic left renal vein. Lymph Nodes: Several portacaval lymph nodes measure up to 18 mm. These are stable. No new enlarged periaortic lymph nodes. Aorta: Normal in diameter. PELVIS FINDINGS: Bowel: Small Bowel: Normal in caliber with normal wall thickness. Large Bowel: Normal in caliber with normal wall thickness. Appendix: Normal appendix. Bladder: Normal. Lymph nodes: No enlarged mesenteric, pelvic, or inguinal lymph nodes. No free fluid or fluid collection. Bones: Mild degenerative changes of the spine consistent with age.. IMPRESSION: 1. Loculated hydropneumothorax in the inferior left hemithorax with enhancement of the visceral and parietal pleura. Empyema should be considered. 2. Multiple prominent left cardiophrenic and paraesophageal lymph nodes are likely reactive from the infectious/inflammatory process in the chest. 3. No evidence of abscess in the abdomen or pelvis. 4. Subcutaneous emphysema in the anterior left abdominal wall, possibly from chest tube placement. Signed by: Dr. Omkar Qiu MD on 05/21/2017 8:25 AM
[2017-05-21 08:45] LABS: ANION GAP 13.4 mmol/L (8-16); BLOOD UREA NITROGEN 5 mg/dL (7-26); BUN/CREATININE RATIO 6 (6-25); CARBON DIOXIDE 20 mmol/L (22-29); CHLORIDE 102 mmol/L (98-107); CREATININE, SERUM 0.78 mg/dL (0.72-1.25); EST GLOMERULAR FILTRATION RATE > 60 ML/MIN (60-); GLUCOSE 99 mg/dL (74-118); POTASSIUM 3.4 mmol/L (3.5-5.1); SODIUM 132 mmol/L (136-145)
[2017-05-21 12:25] VITALS: BP 130/76
[2017-05-21] MEDS ORDERED: POTASSIUM CHLORIDE 20 MEQ TAB CR PO ONE (14:00)
[2017-05-21 16:08] VITALS: BP 118/65
[2017-05-21 20:10] VITALS: BP 120/81
[2017-05-21] MEDS: ATORVASTATIN 10 MG TAB PO SCH (21:25)
[2017-05-22] VITALS: BP 131/78
[2017-05-22] MEDS ORDERED: IOPAMIDOL 370 MG/ML 200 ML INFUS..BTL INJ ONE (00:28)
[2017-05-22] MEDS ORDERED: SODIUM CHLORIDE 0.9% 50ML 50 ML ONE (00:28)
[2017-05-22] MEDS: ALBUTEROL/IPRATROPIUM 3 ML NEB NEB SCH ×6 (02:54→22:55)
[2017-05-22 04:00] VITALS: BP 138/79
[2017-05-22 06:45] LABS: BASOPHILS % 0.4 % (0.0-1.0); EOSINOPHILS # (AUTO) 0.1 (0.0-0.4); EOSINOPHILS % 0.8 % (0.0-6.0); HEMATOCRIT 32.5 % (38.2-49.6); HEMOGLOBIN 10.6 g/dL (14.0-18.0); LYMPHOCYTES % 10.7 % (18.0-39.1); MEAN CORPUSCULAR HEMOGLOBIN 27.7 pg (28-32); MEAN CORPUSCULAR HGB CONC 32.6 g/dL (31-35); MEAN CORPUSCULAR VOLUME 85.1 fL (81-99); MONOCYTES # (AUTO) 0.8 (0.2-0.8); MONOCYTES % 8.4 % (4.4-11.3); NEUTROPHILS # (AUTO) 7.2 (2.1-6.9); NEUTROPHILS % 78.6 % (38.7-80.0); PLATELET COUNT 460 x10e3/uL (140-360); RED BLOOD COUNT 3.82 x10e6/uL (4.3-5.7); RED CELL DISTRIBUTION WIDTH 14.1 % (11.7-14.4)
[2017-05-22 07:25] LABS: ALANINE AMINOTRANSFERASE 49 IU/L (0-55); ALBUMIN 2.3 g/dL (3.5-5.0); ALBUMIN/GLOBULIN RATIO 0.5 (0.8-2.0); ALKALINE PHOSPHATASE 135 IU/L (40-150); ANION GAP 12.3 mmol/L (8-16); BLOOD UREA NITROGEN 6 mg/dL (7-26); BUN/CREATININE RATIO 7 (6-25); CALCIUM 8.9 mg/dL (8.4-10.2); CARBON DIOXIDE 23 mmol/L (22-29); CHLORIDE 105 mmol/L (98-107); CREATININE, SERUM 0.82 mg/dL (0.72-1.25); EST GLOMERULAR FILTRATION RATE > 60 ML/MIN (60-); GLUCOSE 108 mg/dL (74-118); POTASSIUM 4.3 mmol/L (3.5-5.1); SODIUM 136 mmol/L (136-145)
[2017-05-22] MEDS: ALLOPURINOL 100 MG TAB PO SCH (08:48)
[2017-05-22 12:00] VITALS: BP 131/80
--- NOTE | 2017-05-22 14:22 | Progress Note ---
DATE: INFECTIOUS DISEASE PROGRESS NOTE Mr. Clemons is doing well. I have been observing him for the last couple of days without antibiotic; but, however, he is noted to have __fever again and he still has some cough. PHYSICAL EXAMINATION GENERAL: He is alert, oriented, does not seem to be in acute distress. VITAL SIGNS: Stable. Currently __afebrile. HEENT: Normocephalic. He does not appear icteric. NECK: Supple. No JVD, no lymphadenopathy, no thyromegaly. CHEST: A few crackles. HEART: S1 and S2. No S3 or S4, no murmur. ABDOMEN: Soft. IMPRESSION: Abnormal CT suggestive of empyema. __Fever. Discussed with him at length. I also discussed with Dr. Langley. The differential diagnosis is either empyema or hematoma. So, I am going to start him on IV vancomycin, get a PICC line in him, and just observe him and recheck a CT in a few weeks and see how he is doing clinically. Will also get a sed rate, C-reactive protein and procalcitonin. Will arrange home IV antibiotic. Will follow with you. Job#: [id number] [place]
--- NOTE | 2017-05-22 16:09 | Diagnostic Imaging Report ---
Portable chest x-ray CPT code 22034 INDICATION: Line placement COMPARISON: Chest x-ray 05/20/2017, CT abdomen/pelvis 05/21/2017 FINDINGS: Frontal view of the chest obtained at 1540 hours. The cardiac silhouette is stable. Loculated left basilar pleural effusion is stable in appearance. Right PICC line terminates in the proximal SVC without pneumothorax. There are no infiltrates in the right lung or evidence of pleural effusion. The osseous structures are stable. IMPRESSION: 1. Right PICC line terminates in the SVC without pneumothorax. 2. Stable loculated left pleural effusion. Signed by: Dr. Omkar Qiu MD on 05/22/2017 4:05 PM
[2017-05-22 16:36] VITALS: BP 125/73
[2017-05-22] MEDS: VANCOMYCIN 1GM/NS 250 ML 250 ML IV SCH (17:25)
[2017-05-22 20:00] VITALS: BP 126/75
[2017-05-22] MEDS: ATORVASTATIN 10 MG TAB PO SCH (20:44)
[2017-05-23] VITALS (7 sets, daily range): BP systolic 121–130; BP diastolic 64–75
[2017-05-23] MEDS: ALBUTEROL/IPRATROPIUM 3 ML NEB NEB SCH ×7 (03:00→16:40)
[2017-05-23] MEDS: VANCOMYCIN 1GM/NS 250 ML 250 ML IV SCH ×2 (05:42→16:32)
[2017-05-23] MEDS ORDERED: SODIUM CHLORIDE 0.9% 50ML 50 ML ONE (05:50)
[2017-05-23] MEDS ORDERED: LIPITOR10 MG PO (07:21)
[2017-05-23] MEDS ORDERED: COLACE100 M1 PO (07:21)
--- NOTE | 2017-05-23 07:44 | Discharge Summary ---
PRINCIPAL DIAGNOSES 1. Left hemothorax. 2. Left rib fracture. 3. Normocytic anemia, mild. 4. Obesity, body mass index 34.6. 5. Urinary tract infection. 6. Sepsis secondary to urinary tract infection and lung process. 7. Iron deficiency anemia. 8. Dyspnea on exertion secondary to hemothorax. SECONDARY DIAGNOSIS: Gout. CHIEF COMPLAINT: Shortness of breath. HISTORY OF PRESENT ILLNESS: A 56-year-old man developing shortness of breath. Please refer to the H and P for further details. HOSPITAL COURSE: Patient was found to have left hemothorax and underwent chest tube placement with drainage. Had a protracted hospitalization and developed sepsis. He had a urinary tract infection, and received IV antibiotics. His PICC line was in place. Dr. Dominguez assisted in management of IV antibiotics outpatient for left right fracture and normocytic anemia. He had obesity. BMI 34.6. Dyspnea on exertion with hemothorax and iron deficiency anemia. The patient also became septic. Now, the patient is doing better. He is able to ambulate in the hallways with no shortness of breath. Chest tube has since been removed. He is doing well and currently appropriate for discharge. There has been no fever or leukocytosis. DISCHARGE MEDICATIONS: Per electronic medical record and include IV vancomycin. FOLLOWUP 1. Primary care doctor in 1 week. 2. Follow up with Dr. Dominguez of infectious disease in 1 week. 3. Follow up with Dr. Ryan of surgery as directed in 2 weeks. CONDITION ON DISCHARGE: Stable and improved. DISCHARGE LOCATION: Home with home health. IGNACIO BUSTAMANTE MD Job#: [id number] [place]
--- NOTE | 2017-05-23 07:45 | Discharge Summary ---
ADDENDUM Please note that sepsis was not present on admission. Developed during hospitalization. IGNACIO BUSTAMANTE MD Job#: [id number] [place]
[2017-05-23] MEDS: ALLOPURINOL 100 MG TAB PO SCH (09:58)
[2017-05-23] MEDS: CEFEPIME HCL 1 GM VIAL IV SCH ×2 (12:15→18:26)
--- NOTE | 2017-05-23 12:41 | Progress Note ---
DATE: INFECTIOUS DISEASE PROGRESS NOTE Mr. Clemons is feeling better today. He had no fever so far. PHYSICAL EXAMINATION GENERAL: Alert, oriented, does not seem to be in acute distress. VITAL SIGNS: Stable. Currently afebrile. HEENT: He does not appear icteric. NECK: Supple. CHEST: A few crackles at the bases. HEART: S1 and S2. No S3 or S4, no murmur. ABDOMEN: Soft. Bowel sounds present. No tenderness. EXTREMITIES: No edema. IMPRESSION: Possible empyema. Status post chest tube. Doing better with vancomycin. Will add cefepime for gram-negative coverage. Will plan on IV vancomycin and cefepime for 3 to [address] of the chest as an outpatient. Will follow weekly CBC, weekly chem panel. Discussed with the patient at length. Will also have a vancomycin trough. Patient can be discharged later today after his next dose of antibiotic and to come see me in the office tomorrow at 10. Job#: [id number] DARIA
== END 2017-05-23 18:25 | disposition home or self-care (01) | DRG 199 ==
LOC: ER 13:21 → ERHOLD 16:16 → MED/SURG 20:49
PROVIDERS: ADMIT Internal Medicine; ATTEND Internal Medicine
PROC: 0W9B00Z Drainage of Left Pleural Cavity with Drainage Device, Open Approach (ICD-10-PCS; principal; 2017-05-10 13:00)
PROC: 02HV33Z Insertion of Infusion Device into Superior Vena Cava, Percutaneous Approach (ICD-10-PCS; 2017-05-22)
DX: S27.1XXA Traumatic hemothorax, initial encounter (principal); A41.9 Sepsis, unspecified organism; J86.9 Pyothorax without fistula; J18.9 Pneumonia, unspecified organism; N39.0 Urinary tract infection, site not specified; V29.9XXA Motorcycle rider (driver) (passenger) injured in unspecified traffic accident, initial encounter; S22.42XD Multiple fractures of ribs, left side, subsequent encounter for fracture with routine healing; M10.9 Gout, unspecified; E78.5 Hyperlipidemia, unspecified; D50.9 Iron deficiency anemia, unspecified; E66.9 Obesity, unspecified; Z68.34 Body mass index [BMI] 34.0-34.9, adult; Z28.21 Immunization not carried out because of patient refusal
CPT/HCPCS: 36415; 36569; 71010; 71020; 71260; 74177; 80048; 80053; 80202; 81001; 82550; 82553; 83540; 83605; 83690; 84466; 84484; 85025; 85610; 85730; 86850; 86900; 87040; 87086; 87390; 93005; 93970; 96361; 96367; 96374; 99284; G0433; G0435; J0692; J0696; J1100; J1170; J1756; J2001; J2250; J2270; J2370; J2405; J2543; J3370; J7050; J7120; Q9967

== ENCOUNTER → 2017-06-12 | Outpatient (CLI) | payer OTHER ==
[~2017-06-12] MED LIST: ALLOPURINOL100 MG PO; COLACE100 M1 PO; LIPITOR10 MG PO
--- NOTE | 2017-06-12 11:51 | Diagnostic Imaging Report ---
PROCEDURE: Frontal and lateral views of the chest. COMPARISON: 05/22/17 INDICATIONS: LEFT SIDE PNEUMOTHORAX CHECK UP, PLEURAL EFFUSION FINDINGS: Lines/tubes: Stable right PICC. Lungs: The lungs are well inflated. right lung is clear. Pleura: There is no visible pneumothorax. Moderate left pleural effusion. Heart and mediastinum: The heart and the mediastinum are normal. Bones: No acute bony abnormality. IMPRESSION: Unchanged moderate left pleural effusion. Underlying atelectasis/pneumonia cannot be excluded. Dictated by: Dayo Colmenares M.D. on 06/12/2017 at 12:00 Electronically approved by: Dayo Colmenares M.D. on 06/12/2017 at 12:00
== END ==
LOC: RAD 10:26
PROVIDERS: ATTEND Surgery
DX: J94.2 Hemothorax (principal); J18.9 Pneumonia, unspecified organism
CPT/HCPCS: 71020

== ENCOUNTER → 2017-07-03 | Outpatient (CLI) | payer OTHER ==
--- NOTE | 2017-07-03 14:00 | Diagnostic Imaging Report ---
CT chest without enhancement CPT code: 17645 INDICATION: Pyothorax without fistula, broken ribs, left chest tube placement TECHNIQUE: Thin collimation axial images obtained from the thoracic inlet to the level of the diaphragm without intravenous contrast. RADIATION DOSE: Total DLP: 604.6 mGy*cm Estimated effective dose: (DLP x 0.015 x size factor) mSv CTDIvol has been reviewed. It is below the limits set by the Radiation Protocol Committee (RPC). COMPARISON: Chest x-ray 05/22/2017, CT chest 05/16/2017, CT abdomen 05/21/2017. CHEST FINDINGS: Lymph nodes: No enlarged axillary or supraclavicular lymph nodes. Mediastinal lymph nodes are increased in number but measure up to 15 mm with fatty danette. Left cardiophrenic lymph nodes are prominent, measuring up to 12 mm. These are stable. 2 lymph nodes adjacent to the distal esophagus measure up to 12 mm. A lymph node in the same area on previous exam measured 12 mm. Thyroid: Normal in size without mass in the visualized parenchyma. Mediastinum: The heart is normal in size. No pericardial effusion. The esophagus is normal. Lungs: Right: Mild apical pleural-parenchymal thickening is present and stable. There is no evidence of infiltrate or mass. Left: Mild apical pleural-parenchymal thickening is stable. Bands of subsegmental atelectasis in the inferior upper lobe/lingular are smaller. Atelectasis of the lower lobe is stable. Pleura: No evidence of pleural effusion, pleural thickening, or pneumothorax in the right chest. Loculated left pleural effusion in the posterior lower chest measures about 8 cm in length and 4.5 cm in the craniocaudal dimension surrounded by atelectatic lung and a small amount of fluid in the posterior costophrenic angle. This is along the tract of a discontinued chest tube. Anterior pneumothorax is no longer visualized. There is no evidence of air involving the loculated fluid collection or the adjacent pleural effusion. The entire area measures 4.6 cm in thickness. ABDOMEN FINDINGS: Visualized portions of the liver, gallbladder, pancreas, spleen, and adrenal glands are unremarkable. Bones: There are healing fractures of the left ribs numbers 3 through 9. Ribs numbers 5, 6 and 7 are fractured in 2 places. Posterior rib fractures of ribs 7 and 8 are displaced. IMPRESSION: 1. Left pneumothorax has resolved. However, there is a loculated fluid collection in the base of the left hemithorax surrounded by more simple appearing fluid. Findings are suggestive of empyema if there are signs/symptoms of infection. Alternatively, this could represent organizing hemothorax. 2. Multiple left rib fractures as described above. Flail chest is suspected at ribs 5 through 7. 3. Subtotal atelectasis of the left lower lobe is similar. Left upper lobe atelectasis has improved. 4. No new findings in the right hemithorax. Signed by: Dr. Omkar Qiu MD on 07/03/2017 1:57 PM
== END ==
LOC: CT 12:03
PROVIDERS: ATTEND Internal Medicine Infectious Disease
DX: J86.9 Pyothorax without fistula (principal)
CPT/HCPCS: 71250